=== PATIENT | male | born 1945 | race Caucasian/White ===

== ENCOUNTER 2021-01-25 05:30 | Day surgery (SDC) | payer MEDICARE ==
[~2021-01-25] VITALS: Ht 182.9 cm; Wt 114.5 kg
[2021-01-25] VITALS (12 sets, daily range): BP systolic 114–160; BP diastolic 64–110; PULSE 55–92; TEMP 97.9–99
[2021-01-25] MEDS ORDERED: ZESTRIL40 MG PO (06:11)
[2021-01-25] MEDS ORDERED: NORVASC 5MG5 MG/TAB PO (06:12)
[2021-01-25] MEDS ORDERED: HCTZ 25MG TAB25 MG PO (06:13)
[2021-01-25] MEDS ORDERED: PYRIDIUM 100MG100 MG PO (07:41)
--- NOTE | 2021-01-25 10:30 | NUR ---
Pt doing well since coming up from surgery. He does not have any feeling in his lower extremities and no pain complaints. Output is very light pink in color and no clots noted. CBI running at moderate rate. Oriented patient to his room and room service. He has had ice water and crackers. Call light within reach, will continue to monitor
--- NOTE | 2021-01-25 11:39 | NUR ---
Pt continues to do well. Ordered his lunch and medications given. CBI continues to be pink in color with no clots
--- NOTE | 2021-01-25 11:59 | NUR ---
First visit from the wind turbine controls engineer. No needs right now.
--- NOTE | 2021-01-25 18:42 | NUR ---
Pt has continued to do well throughout the day. CBI running at a moderate to fast rate. Output has continued to be pink to dark pink with no clots present. Not having any pain complaints, but states that he can tell something was done. He is tolerating a general diet, fluids INT'd at this time
[2021-01-26 03:32] VITALS: BP 149/79; PULSE 64; TEMP 97.5
--- NOTE | 2021-01-26 06:26 | NUR ---
I started the shift with 6,000 ml for CBI. The total output on my shift was 12,850. During the night I added an additional 9,000 ml. By the end of my shift his abreu contents were light pink and there was still 4,500 ml left to CBI. The total used CBI volume is 10,500 The total out of the abreu is 12,850 The difference is 2,350
[2021-01-26 08:35] VITALS: BP 157/87; PULSE 58; TEMP 98.5
--- NOTE | 2021-01-26 11:59 | NUR ---
Patient resting in bed at this time. Patient is alert and oriented, answers questions appropriately. CBI in place draining clear pink/red urine. Patient denies pain or discomfort. student ambassador is assigned to this patient. Patient denies needs at this time, call light within reach.
[2021-01-26 12:02] VITALS: BP 140/83; PULSE 67; TEMP 97.8
--- NOTE | 2021-01-26 13:46 | NUR ---
SW met with the patient to discuss discharge plan. The patient lives in [place] with his , Ana Maria (ph#[phone]). He reports independence with ADLs and does not have any DME. The patient's PCP is Dr. Linus Webb and he receives his medications from [facility] in [place]. He reports no difficulties obtaining his meds. The patient does not have a DPOA-HC in EMR, but he states that he does have one completed and that it designates his . The patient plans to return home with his upon discharge. No additional needs at this time.
[2021-01-26 15:36] VITALS: BP 142/76; PULSE 61; TEMP 98.6
--- NOTE | 2021-01-26 18:57 | NUR ---
RECEIVED CHANGE OF SHIFT REPORT FROM DAY SHIFT NURSE. PATIENT UP IN CHAIR DURING REPORT WITH CBI RUNNING AT SLOW RATE, PATIENT WITH NO COMPLAINTS OR CONCERNS.
[2021-01-26 20:00] VITALS: BP 131/82; PULSE 64; TEMP 98.7
--- NOTE | 2021-01-26 20:00 | NUR ---
PATIENT UP INDEPENDENTLY IN ROOM. DENIES ANY DISCOMFORT AT THIS TIME. JOYNER CATH IN PLACE, DRAINING WITH CBI IN PLACE.
[2021-01-27] VITALS: BP 144/78; PULSE 56; TEMP 98.7
[2021-01-27 04:15] VITALS: BP 151/79; PULSE 57; TEMP 97.7
--- NOTE | 2021-01-27 07:00 | NUR ---
CHANGE OF SHIFT REPORT GIVEN TO DAY SHIFT NURSEELIZ RN. PATIENT TOLERATED FILL AND PULL BEDSIDE PROCEDURE VIA THIS NURSE AND VERBALIZED UNDERSTANDING OF 6 BOTTLE ROUTINE AFTER ADDITIONAL INSTRUCTION AFTER VOIDING AFTER CATHETER REMOVED.
[2021-01-27 07:56] VITALS: BP 163/94; PULSE 79; TEMP 97.6
--- NOTE | 2021-01-27 08:37 | NUR ---
Patient resting in bedside recliner at this time. Patient is voiding with no complaints, six cup in progress. Urine is pink and clear. Patient denies pain or needs at this time, call light within reach.
--- NOTE | 2021-01-27 12:10 | NUR ---
Discharge teaching completed. Discussed discharge appointment, discharge instructions, and discharge medications. Patient verbalized understanding. INT removed by manager nursing, hemostasis achieved. Patient denied questions or concerns. Patient escorted to entrance where he entered a private vehicle.
== END 2021-01-27 12:10 | disposition home or self-care (01) ==
LOC: SDCO 05:30 → SURG 09:50 → SDCO 01-27 12:10
DX: N40.1 Benign prostatic hyperplasia with lower urinary tract symptoms (principal); R39.15 Urgency of urination; R39.12 Poor urinary stream; R35.1 Nocturia; N13.8 Other obstructive and reflux uropathy; E78.00 Pure hypercholesterolemia, unspecified; I10 Essential (primary) hypertension; M10.9 Gout, unspecified; Z79.899 Other long term (current) drug therapy; Z91.018 Allergy to other foods; Z20.822 Contact with and (suspected) exposure to COVID-19; Z87.891 Personal history of nicotine dependence; Z80.42 Family history of malignant neoplasm of prostate
CPT/HCPCS: OP; J0461; J0690; J2250; J2370; J2704; J3010; J3480; J7050; J7120